=== PATIENT | male | born 1980 ===

== ENCOUNTER 2024-12-22 20:37 | Emergency (ER) | payer BC ==
[2024-12-22] MEDS ORDERED: Sodium Chloride 0.9% 10 ML Syringe FLUSH PRN (21:08)
[2024-12-22 21:30] LABS: BASOPHILS ABSOLUTE AUTO 0.0 K/mm3 (0.0-0.2); BASOPHILS PERCENT AUTO 0.1 % (0.0-1.0); EOSINOPHILS ABSOLUTE AUTO 0.1 K/mm3 (0.0-0.4); EOSINOPHILS PERCENT AUTO 1.8 % (0.0-6.0); IMMATURE GRAN ABSOLUTE AUTO 0.02 K/mm3 (0.00-0.05); IMMATURE GRAN PERCENT AUTO 0.3 % (0.0-0.4); LYMPHOCYTES ABSOLUTE AUTO 1.8 K/mm3 (1.0-4.8); LYMPHOCYTES PERCENT AUTO 24.8 % (24.0-44.0); MEAN PLATELET VOLUME 10.9 fl (9.4-12.4); MONOCYTES ABSOLUTE AUTO 0.4 K/mm3 (0.0-0.8); MONOCYTES PERCENT AUTO 5.8 % (0.0-8.0); NEUTROPHILS ABSOLUTE AUTO 4.8 K/mm3 (1.8-7.7); NEUTROPHILS PERCENT AUTO 67.2 % (41.0-71.0); NRBC ABSOLUTE 0.00 (0.00-0.02); NRBC PERCENT 0.0 % (0.0-0.2); PLATELET COUNT,PLT 173 K/mm3 (150-400); RED BLOOD CELL COUNT 4.49 M/mm3 (4.52-5.90); WHITE BLOOD CELL COUNT,WBC 7.10 K/mm3 (3.9-11.3)
[2024-12-22 21:32] LABS: A/G RATIO 1.3 (1-2); ALANINE AMINOTRANSFERASE,ALT 39.0 U/L (16-63); ASPARTATE AMNIOTRANSFERASE,AST 22.0 U/L (15-37); BILIRUBIN TOTAL 0.7 mg/dL (0.2-1.0); BLOOD UREA NITROGEN,BUN 17.0 mg/dL (7-18); CARBON DIOXIDE,CO2 29.0 mEq/L (21-32); CHLORIDE,CL 103.0 mEq/L (98-107); CREATININE 1.2 mg/dL (0.7-1.3); EST CRCL DRUG DOSING (CG) 81.92 mL/min; ESTIMATED GFR 76.0 mL/min (>60); GLUCOSE RANDOM 136.0 mg/dL (70-99); POTASSIUM,K 3.2 mEq/L (3.5-5.1); PROTEIN TOTAL,TP 7.0 g/dl (6.4-8.2); SODIUM,NA 140.0 mEq/L (136-145); TROPONIN I HIGH SENSITIVITY 9.0 pg/mL (<=76)
== END 2024-12-22 22:34 | disposition home or self-care (01) ==
LOC: JD.ED 20:37
DX: K30 Functional dyspepsia (principal); I10 Essential (primary) hypertension; Z79.899 Other long term (current) drug therapy
CPT/HCPCS: 36415; 71046; 80053; 83690; 83735; 84484; 85025; 86140; 93005; 96374; 96375; 99285; J2470; J2765; 93010; 99284